=== PATIENT | female | born 1960 | race Caucasian/White ===

== ENCOUNTER → 2017-11-11 10:20 | Outpatient (CLI) | payer OTHER, SELFPAY ==
--- NOTE | 2017-11-11 10:21 | BI_ITS ---
MAMMOGRAPHY - BILATERAL SCREENING REASON FOR EXAM: Female, 57 years old. Routine annual screening examination. PERTINENT HISTORY: Non-contributory. TECHNIQUE: Digital bilateral breast juan (3D mammographic acquisition) in the CC and MLO projections. 2-D mediolateral oblique (MLO) and craniocaudad (CC) views of both breasts were obtained. CAD: Full Field Digital Mammography with Computer Added Detection was performed. COMPARISON: Comparison is made with prior study dated September 25, 2016. FINDINGS: Breast Composition: The breasts are heterogeneously dense, which may obscure small masses. There are no dominant masses or suspicious calcifications. No other significant abnormalities are identified. There has been no significant change since the prior study. BI/SCREENING MAMM (CAD), BILAT IMPRESSION: Stable bilateral screening mammogram. Yearly follow-up mammogram recommended. (A) ASSESSMENT CATEGORY: BIRADS Category 1: Negative. A letter regarding these results will be sent to the patient by the facility within 30 days. Approximately 10% of breast cancers are not detected by mammography. A normal mammogram should not delay biopsy of a clinically suspicious abnormality. [id number] Electronically Signed: Sher Hayes MD at 12:45 EDT Tel [phone], Service support ,
== END ==
PROVIDERS: Family Provider Family Medicine; PCP Family Medicine; Visit Provider Nurse Practitioner Women's Health
DX: Z12.31 Encounter for screening mammogram for malignant neoplasm of breast (principal)
CPT/HCPCS: 77063; 77067

== ENCOUNTER → 2017-11-20 09:23 | Outpatient (CLI) | payer OTHER, SELFPAY ==
--- NOTE | 2017-11-20 09:25 | US_ITS ---
STUDY: ULTRASOUND OF THE PELVIS CLINICAL: Female, 57 years old. Postmenopausal bleeding TECHNIQUE: Transvaginal and transabdominal COMPARISON: None. FINDINGS: Normal uterine size measuring 8.9 x 4.9 x 4.7 cm in maximal craniocaudal dimension. There is a posterior 1.7 cm fibroid. Normal endometrial thickness measuring 3 mm and appears hyperechoic. There are no endometrial masses, and there is no fluid in the endometrial cavity. Nabothian cyst at the uterine cervix. Normal right ovary, measuring 1.6 x 1.6 x 1.0 cm. There are multiple follicles without a dominant cyst. Normal left ovary, measuring 1.9 x 1.1 x 1.7 cm. There are multiple follicles without a dominant cyst. There is no free fluid in the pelvis. US/Transvaginal Non- IMPRESSION: Posterior uterine fibroid. Nabothian cyst. Electronically Signed: Jeremiah Krueger DO at 23:47 EDT Tel [phone], Service support ,
--- NOTE | 2017-11-20 09:25 | US_ITS ---
STUDY: ULTRASOUND OF THE PELVIS CLINICAL: Female, 57 years old. Postmenopausal bleeding TECHNIQUE: Transvaginal and transabdominal COMPARISON: None. FINDINGS: Normal uterine size measuring 8.9 x 4.9 x 4.7 cm in maximal craniocaudal dimension. There is a posterior 1.7 cm fibroid. Normal endometrial thickness measuring 3 mm and appears hyperechoic. There are no endometrial masses, and there is no fluid in the endometrial cavity. Nabothian cyst at the uterine cervix. Normal right ovary, measuring 1.6 x 1.6 x 1.0 cm. There are multiple follicles without a dominant cyst. Normal left ovary, measuring 1.9 x 1.1 x 1.7 cm. There are multiple follicles without a dominant cyst. There is no free fluid in the pelvis. US/Pelvic (Non ) IMPRESSION: Posterior uterine fibroid. Nabothian cyst. Electronically Signed: Jeremiah Krueger DO at 23:47 EDT Tel [phone], Service support ,
== END ==
PROVIDERS: Family Provider Family Medicine; PCP Family Medicine; Referring Provider Nurse Practitioner Women's Health; Visit Provider Nurse Practitioner Women's Health
DX: N95.0 Postmenopausal bleeding (principal)
CPT/HCPCS: 76830; 76856; 93976

== ENCOUNTER 2018-01-16 12:23 | Day surgery (SDC) | payer OTHER, SELFPAY ==
--- NOTE | 2018-01-16 06:05 | HP.PCM_ITS ---
- Problem List (1) Postmenopausal bleeding Status: Acute Comment: d and c hysteroscopy History and Physical Date of Admission: 01/16/18 Visit Reasons: Surgical consult Chief Complaint: surgical consult Property And Equipment Clerk Required: No Is patient in pain?: No Allergies azithromycin Allergy (Mild, Verified 11/20/17 13:51) Other Medications sertraline 50 mg tablet 50 mg PO QDAY #90 tab 07/24/17 [Rx Confirmed 11/20/17] estradiol 0.5 mg tablet 0.5 mg PO DAILY 11/11/17 [History Confirmed 11/11/17] progesterone micronized 100 mg capsule 100 mg PO QAM 11/11/17 [History Confirmed 11/20/17] Is last menstrual period known: No Post menopausal: No Patient : No : No PFSH Medical History Anxiety (Acute) Surgical History H/O: knee surgery (Acute) Status post right foot surgery (Acute) Family History Father Cancer Brain Tumor Social History Smoking Status: Current some day smoker alcohol intake: current details: social substance use type: does not use caffeine: Yes what type of physical activity do you participate in: none, walking seatbelt use: always do you feel safe at home: Yes additional social history: Patient is a Teacher at [employer] Surgical consult: Details: LIOR WASSERMAN is a 57 year old who presents for discussion about d and c. she has hadd irregular postmenopausal bleeding even after a normal biopsy , and she has recently stopped her HRT due to this. she is feeling fine right now and may not go on it again. she has had irregular bleeding nothing heavy, but ultrasound showed possible endometrial abnormality. Pregancy History 3 Elective abortions Hx Para 3 Spontaneous abortions Hx # Term Pregnancies Ectopic pregnancies Hx # Pregnancies Multiple births # of living children Past Pregnancies Del. Date Name GA/Weeks Outcome Route Bth Weight Gen Labor Lgth Anesthesia Del Locatn Provider FOB Unknown Lillian Unknown Mildred Unknown Michael ROS Const Constitutional: Reports system reviewed and no additional complaints, except as docu GI GI: Reports system reviewed and no additional complaints, except as docu Exam Const General: cooperative, healthy appearing, comfortable, no acute distress, well developed Nutritional Appearance: average body habitus Orientation: alert [facility] Head: normal to inspection, normocephalic Ears: hearing grossly normal bilaterally, external ears normal Nose: external nose normal, nares normal Face and sinus: normal facial exam Neck Neck: normal visual inspection, trachea midline, no lymphadenopathy Thyroid: thyroid normal Resp Effort & Inspection: normal respiratory effort Musc Other: gross motor intact no deficits, full bilateral strength Skin General: no rashes or lesions noted Neuro Motor: muscle tone normal throughout Assessment & Plan Problems 1. Postmenopausal bleeding N95.0 d and c hysteroscopy Plan plan d and c hysteroscopy discussed surgical risks including risks of anesthesia, infection, bleeding, injury to bowel, bladder or blood vessels, and patient wishes to proceed with surgery.
[2018-01-16 12:44] VITALS: BP 134/86; PULSE 84; RESP 14; TEMP 36.7; O2SAT 96; BMI 26.2
[2018-01-16 12:53] LABS: Mean Corpuscular Hgb 32.1 pg (27.0-32.0); Mean Corpuscular Volume 91.7 fL (81-99); Mean Platelet Vol. 9.4 fl (6.2-12.0); Platelet Count 197 K/mm3 (150-450); RBC Distribution Width CV 12.3 % (11.6-14.6); RBC Distribution Width SD 40.8 fl (35.1-43.9); Red Blood Count 4.36 M/mm3 (4.2-5.4)
[2018-01-16 12:54] LABS: Scan Indicated on CBC? Y/N NO
--- NOTE | 2018-01-16 14:00 | EMB_PTH ---
PATIENT: LIOR WASSERMAN LOC: [facility] U#:[id number] AGE/SX: 57/F ROOM: RE01/16/[address]: Dr. Yany Kwok MD : 1960 BED: DIS: 01/16/2018 SPEC #: [id number] RECD: 01/16/18 16:06 STATUS: VIVI JONNA #: [id number] NAYA: 01/16/18 14:[address]: Yany Kwok DEPT: SURGICAL PATHOLOGY RECD BY: Rubio Lyons ENTERED: 01/17/18 08:22 SP TYPE: ENDOM BX/C ONIEL DR: Dr. Naif Luna III, MD Tissues: Endometrium, NOS Procedures: Surgery Specimen Level IV HEADER OPERATION: Hysteroscopy, dilation and curettage PRE-OP DIAGNOSIS: Postmenopausal bleeding TISSUE SUBMITTED: Endometrial curettings MICROSCOPIC DIAGNOSIS Endometrial curettings: Proliferative endometrium. Fragments of benign ecto- and endocervical epithelium. SJ:xavi 01/20/18 COMMENT Please make reference to previous specimen ([id number]) endometrial biopsy with diagnosis of proliferative endometrium. MICROSCOPIC DESCRIPTION Slides are reviewed. GROSS DESCRIPTION Received in fixative is one container labeled with the patient's name and designated endometrial curettings. The specimen consists of multiple irregular fragments of brown soft tissue that in aggregate measure 3 x 3 x 0.3 cm. The specimen is totally submitted in one cassette. / RY:xavi 01/17/18 TC:4 CPT: 37444
--- NOTE | 2018-01-16 15:28 | PCM.OPRPT ---
Problem List (1) Postmenopausal bleeding Status: Acute Comment: rajat and mihir hysteroscopy Report of Operation Date of Procedure: 01/16/18 Pre-Operative Diagnosis: pmb Post-Operative Diagnosis: same Surgery/Procedure Performed:: d and c hysteroscopy Description of Surgical Findings:: atrophic lining Type of Anesthesia:: Local MAC Special Medications: none Specimen's removed: emc Drains: none Estimated Blood Loss (mL): minimal Fluids Replaced: crystalloid Description of Procedure: Patient was prepped and draped in a normal sterile fashion under MAC anesthesia. A weighted speculum was placed in the vagina and the anterior lip of the cervix was grasped with a single-tooth tenaculum. A paracervical block was placed with 1% lidocaine. Cervix was progressively dilated to allow passage of a 5 mm hysteroscope. The lining was fully visualized and noted to have an atrophic lining with no significant abnormality. Uterine sounded to 9 cm. Curettage was performed and a very scant amount of tissue was obtained, sent to pathology. All instruments were removed from the vagina and excellent hemostasis was noted. Patient was awoken and taken to recovery in stable condition. Grafts/Implants Used: none - Complications none - Admit VTE Documentation VTE Present on Admission: No
--- NOTE | 2018-01-16 15:31 | DCINST_ITS ---
Discharge Diet: No Restrictions Discharge Activity: Return to Normal Activity, May Shower, May Take a Tub Bath Allergies/Adverse Reactions: Allergies azithromycin Allergy (Mild, Verified 01/13/18 15:23) Other Medications to take at Discharge sertraline 50 mg tablet 50 mg PO QDAY #90 tab 07/24/17 estradiol 0.5 mg tablet 0.5 mg PO DAILY #90 tab 12/12/17 progesterone micronized 100 mg capsule 100 mg PO QAM #90 cap 12/12/17 Primary Care Physician: Naif Luna III, MD [Primary Care Provider] - Test Results: Test results from this visit will be discussed in further detail at your follow- up appointment, if applicable. Please Follow Up With: Yany Kwok MD - [phone]
[2018-01-16 15:35] VITALS: BP 120/82; BP 134/86; PULSE 87; RESP 16; TEMP 36.8; O2SAT 99
[2018-01-16 15:40] VITALS: BP 120/82; BP 134/86; PULSE 87; RESP 16; O2SAT 100
[2018-01-16 15:45] VITALS: BP 125/87; BP 134/86; PULSE 87; RESP 16; O2SAT 99
[2018-01-16 15:50] VITALS: BP 126/87; BP 134/86; PULSE 80; RESP 16; O2SAT 99
[2018-01-16 16:35] VITALS: BP 134/86
== END 2018-01-16 16:53 | disposition home or self-care (01) ==
LOC: SDC 12:24 → AC 12:24
PROVIDERS: Family Provider Family Medicine; PCP Family Medicine; Referring Provider Obstetrics & Gynecology; Visit Provider Obstetrics & Gynecology
PROC: 0UDB8ZZ Extraction of Endometrium, Via Natural or Artificial Opening Endoscopic (ICD-10-PCS; CPT 58558; principal; 2018-01-16 13:50)
DX: N95.0 Postmenopausal bleeding (principal); F41.9 Anxiety disorder, unspecified; Z79.899 Other long term (current) drug therapy; F17.200 Nicotine dependence, unspecified, uncomplicated
CPT/HCPCS: 58558; 85027; 86850; 86900; 88305; J7120; J2405

== ENCOUNTER → 2018-12-08 12:15 | Outpatient (CLI) | payer OTHER, SELFPAY ==
--- NOTE | 2018-12-08 12:17 | BI_ITS ---
MAMMOGRAPHY - BILATERAL SCREENING REASON FOR EXAM: Female, 58 years old. Routine annual screening examination. PERTINENT HISTORY: Non-contributory. TECHNIQUE: Digital bilateral breast geoffrey (3D mammographic acquisition) in the CC and MLO projections. 2-D mediolateral oblique (MLO) and craniocaudad (CC) views of both breasts were obtained. CAD: Full Field Digital Mammography with Computer Added Detection was performed. COMPARISON: Comparison is made with prior study dated November 11, 2017. FINDINGS: Breast Composition: The breasts are heterogeneously dense, which may obscure small masses. There are no dominant masses or suspicious calcifications. No other significant abnormalities are identified. There has been no significant change since the prior study. BI/SCREEN MAMM (CAD) W/GEOFFREY BILAT IMPRESSION: Stable bilateral screening mammogram. Yearly follow-up mammogram recommended. (A) ASSESSMENT CATEGORY: BIRADS Category 1: Negative. A letter regarding these results will be sent to the patient by the facility within 30 days. Approximately 10% of breast cancers are not detected by mammography. A normal mammogram should not delay biopsy of a clinically suspicious abnormality. [id number] Electronically Signed: Sher Hayes, at 14:15 EDT , Service support ,
== END ==
PROVIDERS: Family Provider Family Medicine; PCP Family Medicine; Referring Provider Nurse Practitioner Women's Health; Visit Provider Nurse Practitioner Women's Health
DX: Z12.31 Encounter for screening mammogram for malignant neoplasm of breast (principal)
CPT/HCPCS: 77063; 77067

== ENCOUNTER → 2019-04-24 11:13 | Outpatient (CLI) | payer OTHER, SELFPAY ==
[2018-12-08 13:04] VITALS: BMI 26.2
--- NOTE | 2019-04-24 11:21 | US_ITS ---
STUDY: ULTRASOUND OF THE FEMALE PELVIS - COMPLETE REASON FOR EXAM: Female, 58 years old. PELVIC PRESSURE, URGENCY LMP: Postmenopausal age. TECHNIQUE: Transabdominal TECHNICAL QUALITY: Adequate. COMPARISON: 11/20/2017. FINDINGS: The uterus is anteverted and is in a midline position. The uterus measures 9.6 x 5.8 x 4.2 cm. Normal uterine cervix. The endometrium measures 4.3-5.7 mm in thickness, and is hyperechoic. There is no demonstrated endometrial mass. There is no demonstrated myometrial mass. I.U.D. - The patient does not have an I.U.D. The right ovary is visualized. The right ovary measures 1.7 x 1.6 x 1.6 cm. There is no right ovarian cyst or ovarian mass. There is no visualized right adnexal mass or complex lesion. There is normal arterial and normal venous vascularity. The left ovary is visualized. The left ovary measures 2.3 x 1.9 x 1.4 cm. There is no left ovarian cyst or ovarian mass. There is no visualized left adnexal mass or complex lesion. There is normal arterial and normal venous vascularity. There is no fluid in the cul-de-sac. The volume of the bladder was 506.64 ml. US/Pelvic (Non ) IMPRESSION: Borderline size of the endometrium otherwise endometrium suboptimally seen, recommend follow-up with transvaginal ultrasound for more adequate characterization. Otherwise normal female pelvis ultrasound. Electronically Signed: Barbra Ritchie MD at 2:44 EDT , Service support ,
== END ==
PROVIDERS: PCP Family Medicine; Referring Provider Urology; Visit Provider Urology
DX: R10.2 Pelvic and perineal pain (principal); R39.15 Urgency of urination
CPT/HCPCS: 76856

== ENCOUNTER → 2019-12-10 08:35 | Outpatient (CLI) | payer OTHER, SELFPAY ==
[2018-12-08 13:04] VITALS: BMI 26.2
--- NOTE | 2019-12-10 08:36 | BI_ITS ---
MAMMOGRAPHY - BILATERAL SCREENING REASON FOR EXAM: Female, 59 years old. Routine annual screening examination. PERTINENT HISTORY: Non-contributory. TECHNIQUE: Digital bilateral breast geoffrey (3D mammographic acquisition) in the CC and MLO projections. 2-D mediolateral oblique (MLO) and craniocaudad (CC) views of both breasts were obtained. CAD: Full Field Digital Mammography with Computer Added Detection was performed. COMPARISON: Comparison is made with prior study dated 12/08/2018 and 11/11/2017. FINDINGS: Breast Composition: The breasts are heterogeneously dense, which may obscure small masses. There are no dominant masses or suspicious calcifications. No other significant abnormalities are identified. There has been no significant change since the prior study. BI/SCREEN MAMM (CAD) W/GEOFFREY BILAT IMPRESSION: Stable bilateral screening mammogram. Yearly follow-up mammogram recommended. (A) ASSESSMENT CATEGORY: BIRADS Category 1: Negative. A letter regarding these results will be sent to the patient by the facility within 30 days. Approximately 10% of breast cancers are not detected by mammography. A normal mammogram should not delay biopsy of a clinically suspicious abnormality. [id number] Electronically Signed: Sher Hayes, at 9:36 EDT , Service support ,
== END ==
PROVIDERS: PCP Family Medicine; Referring Provider Nurse Practitioner Women's Health; Visit Provider Nurse Practitioner Women's Health
DX: Z12.31 Encounter for screening mammogram for malignant neoplasm of breast (principal)
CPT/HCPCS: 77063; 77067

== ENCOUNTER → 2020-12-15 12:18 | Outpatient (CLI) | payer OTHER, SELFPAY ==
[2019-12-10 10:23] VITALS: BMI 26.6
--- NOTE | 2020-12-15 12:21 | BI_ITS ---
MAMMOGRAPHY - BILATERAL SCREENING REASON FOR EXAM: Female, 60 years old. Routine annual screening examination. PERTINENT HISTORY: Non-contributory. TECHNIQUE: Digital bilateral breast geoffrey (3D mammographic acquisition) in the CC and MLO projections. 2-D mediolateral oblique (MLO) and craniocaudad (CC) views of both breasts were obtained. CAD: Full Field Digital Mammography with Computer Added Detection was performed. COMPARISON: Comparison is made with prior study 12/10/2019 and 12/08/2018. FINDINGS: Breast Composition: The breasts are heterogeneously dense, which may obscure small masses. There are no dominant masses or suspicious calcifications. No other significant abnormalities are identified. There has been no significant change since the prior study. BI/SCRN MAMM (CAD)W/GEOFFREY BILAT IMPRESSION: Stable bilateral screening mammogram. Yearly follow-up mammogram recommended. (A) ASSESSMENT CATEGORY: BIRADS Category 1: Negative. A letter regarding these results will be sent to the patient by the facility within 30 days. Approximately 10% of breast cancers are not detected by mammography. A normal mammogram should not delay biopsy of a clinically suspicious abnormality. [id number] Electronically Signed: Sher Hayes MD at 13:21 EDT , Service support ,
== END ==
PROVIDERS: PCP Family Medicine; Referring Provider Nurse Practitioner Women's Health; Visit Provider Nurse Practitioner Women's Health
DX: Z12.31 Encounter for screening mammogram for malignant neoplasm of breast (principal)
CPT/HCPCS: 77063; 77067

== ENCOUNTER → 2022-03-08 | Outpatient (CLI) | payer OTHER, SELFPAY ==
--- NOTE | 2022-03-08 14:56 | BI_ITS ---
MAMMOGRAPHY - BILATERAL SCREENING REASON FOR EXAM: Female, 61 years old. Routine annual screening examination. PERTINENT HISTORY: Non-contributory. TECHNIQUE: Digital bilateral breast geoffrey (3D mammographic acquisition) in the CC and MLO projections. 2-D mediolateral oblique (MLO) and craniocaudad (CC) views of both breasts were obtained. CAD: Full Field Digital Mammography with Computer Added Detection was performed. COMPARISON: Comparison is made with prior study dated 12/15/2020 and 12/10/2019. FINDINGS: Breast Composition: The breasts are heterogeneously dense, which may obscure small masses. There are no dominant masses or suspicious calcifications. No other significant abnormalities are identified. There has been no significant change since the prior study. BI/SCRN MAMM (CAD)W/GEOFFREY BILAT IMPRESSION: Stable bilateral screening mammogram. Yearly follow-up mammogram recommended. (A) ASSESSMENT CATEGORY: BIRADS Category 1: Negative. A letter regarding these results will be sent to the patient by the facility within 30 days. Approximately 10% of breast cancers are not detected by mammography. A normal mammogram should not delay biopsy of a clinically suspicious abnormality. [id number] Electronically Signed: Sher Hayes MD at 15:45 EST ,
[2022-03-15 19:41] LABS: HPV APTIMA, High Risk Negative (Negative)
== END | disposition home or self-care (01) ==
PROVIDERS: Visit Provider Nurse Practitioner Women's Health
DX: Z12.31 Encounter for screening mammogram for malignant neoplasm of breast (principal)
CPT/HCPCS: 77063; 77067; 87624; 88175; G0145

== ENCOUNTER → 2022-05-14 | Outpatient (CLI) | payer OTHER, SELFPAY ==
--- NOTE | 2022-05-14 15:25 | NEURO ---
NCS and/or EMG Patient Report Ordering Doctor: Brayden Jenkins DATE OF SERVICE: 05/14/22 Indication: Several months of numbness, tingling, and aching of the left hand (patient is right-handed). Evaluate for entrapment neuropathy. Findings: Nerve conduction studies were performed in the left upper extremity. The left median motor study recording the abductor pollicis brevis showed a normal amplitude, prolonged distal latency and normal conduction velocity. The left ulnar motor study recording the abductor digiti minimi showed a normal amplitude, normal distal latency and normal conduction velocity. No conduction block or focal slowing was present across the elbow. The left median sensory response recording digit two was absent. The left ulnar sensory response recording digit five showed a normal amplitude, latency and conduction velocity. The left radial sensory response recording over the extensor snuff box showed a normal amplitude, latency and conduction velocity. The left median-ulnar lumbrical / interosseous motor latencies showed a prolonged median latency compared to the ulnar. Needle EMG of the left upper extremity was omitted given the confirmatory nature of the nerve conduction studies. Impression: This is an abnormal study. 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 The pathophysiology is predominantly demyelination. These findings are compatible with the clinical diagnosis of carpal tunnel syndrome. Given the relatively fast development of symptoms and the fact that it involves the non-dominant hand, imaging could be considered to evaluate for a structural lesion (e.g., ganglion cyst, accessory muscle, etc.). Saul Dunlap D.O. Multi Select Codes Neurology Neurology Interp Codes: 49417-46 [facility] ([facility]p)
== END | disposition home or self-care (01) ==
LOC: PSN 14:06
PROVIDERS: Visit Provider Family Medicine
DX: R20.0 Anesthesia of skin (principal); R20.2 Paresthesia of skin
CPT/HCPCS: 95910

== ENCOUNTER 2023-01-23 13:43 | Emergency (ER) | payer OTHER, SELFPAY ==
[2023-01-23 13:45] VITALS: BP 149/108; PULSE 80; RESP 16; TEMP 36.6; O2SAT 99; BMI 24.0
--- NOTE | 2023-01-23 14:09 | EX.ED.DYSGE1 ---
HPI History of Present Illness Chief Complaint: Abd Pain Informant: patient Onset/Context/Timing Onset: Yesterday Context: Gradual Onset Timing: Continuous Quality: Aching Location: Lower abdomen Worsened by: Nothing Relieved by: Nothing Narrative Narrative: Patient presents with diarrhea and stool incontinence. Patient states she has been constipated a few days ago. Patient states she has been in to have a bowel movement. Patient states that yesterday she started having some loose stools which progressed to watery diarrhea today. Patient states she has had some fecal incontinence today. Patient went to the [facility] urgent care. Patient was then referred to the emergency department for possible rectal prolapse. Patient admits to some aching pain in her lower abdomen. Patient admits to some pressure in her rectum. Patient denies any melena or hematochezia. Patient denies any fevers or chills. PFSH PFS Medical History (Updated 01/23/23 @ 19:[address] Henrique Ureña DO) Anxiety colon cyst Home Medications sertraline 50 mg tablet 50 mg PO QDAY #90 tabs 03/08/22 [Rx Last Taken Unknown] estradiol 0.5 mg tablet 0.5 mg PO DAILY #90 tabs 04/02/22 [Rx Last Taken Unknown] progesterone micronized 100 mg capsule (Prometrium) 100 mg PO QHS #90 caps 04/02/22 [Rx Last Taken Unknown] Allergy/AdvReac Type Severity Reaction Status Date / Time azithromycin Allergy Intermediate HIVES Verified 01/23/23 13:48 Family History Father Cancer Brain Tumor Surgical History (Updated 01/23/23 @ 14:[address] Henrique Ureña DO) H/O: knee surgery Hx of appendectomy Hx of cholecystectomy spinal tumor removal Status post right foot surgery Social History household members: spouse housing: house Smoking Status: Former smoker alcohol intake: current details: social substance use type: does not use caffeine: Yes what type of physical activity do you participate in: none and walking seatbelt use: always do you feel safe at home: Yes additional social history: Patient is a Teacher at [employer] ED Constitutional Constitutional ED: Denies chills or fever(s) Eyes Eyes: Denies blurry vision or change in vision ENT ENT ED: Denies rhinorrhea or sore throat Cardiovascular Cardiovascular: Denies chest pain or palpitations Respiratory/Chest Respiratory/Chest: Denies cough or dyspnea Gastrointestinal Gastrointestinal: Reports abdominal pain and diarrhea; Denies nausea or vomiting Genitourinary Genitourinary ED: Denies dysuria or hematuria Musculoskeletal Musculoskeletal: Reports back pain and neck pain Integumentary Denies abscess or rash Neurologic Neurologic: Denies headache(s) or weakness Allergic/Immunologic Allergic/Immunologic ED: Denies mouth swelling or urticaria EXAM Physical Exam Const Vital Signs: 01/23/23 13:45 Temperature 97.9 F Temperature Source Temporal Pulse Rate 80 Respiratory Rate 16 Blood Pressure 149/108 H Blood Pressure Mean 121 Pulse Ox 99 Oxygen Delivery Method Room Air Positive well nourished and well developed General Appearance ED: well developed and NAD HEENT Reports moist mucous membranes Neck supple and no JVD Resp normal respiratory effort and clear to auscultation bilaterally Cardio regular rate and regular rhythm GI non-distended GI Narrative: Rectal exam did not feel any rectal prolapse. There were no thrombosed or bleeding hemorrhoids. There are some external hemorrhoids noted. Palpation: soft and tender LLQ and suprapubic; Negative for guarding or rebound tenderness present Extremity normal to inspection Neuro oriented x3, CN's II-XII intact bilaterally and no sensory deficits noted Sensorium / Orientation: alert Motor Exam: strength 5/5 throughout Psych mental status grossly normal MDM MDM MDM Narrative Medical decision making narrative: Differential diagnosis includes diverticulitis, urinary tract infection, colitis, bowel obstruction, perforation, gastroenteritis, ovarian cyst, and abscess. CT scan of the abdomen pelvis will be obtained to assess for diverticulitis, bowel obstruction, perforation, and abscess. CBC will be obtained to assess for leukocytosis and anemia. Basic metabolic profile will be obtained to assess for electrolyte abnormality and renal function. Urinalysis will be obtained to assess for urinary tract infection and hematuria. Lab Data Attestation: I reviewed the patient's lab results. Lab results narrative: CBC was reviewed and was within normal limits. Basic metabolic profile was reviewed and was within normal limits. Urinalysis was reviewed. There is no evidence of urinary tract infection or hematuria. Labs: Laboratory Results - last 24 hr 01/23/23 01/23/23 15:08 16:15 WBC 8.5 RBC 4.82 Hgb 15.3 H Hct 44.9 MCV 93.2 MCH 31.7 MCHC 34.1 RDW Std Deviation 42.8 RDW Coeff of Mary 12.5 Plt Count 223 MPV 9.8 Immature Gran % (Auto) 0.400 Neut % (Auto) 81.3 H Lymph % (Auto) 12.1 L Long % (Auto) 5.9 Eos % (Auto) 0.1 Baso % (Auto) 0.2 Absolute Neuts (auto) 6.9 Absolute Lymphs (auto) 1.03 Nucleated RBC % 0 Sodium 138 Potassium 4.1 Chloride 107 Carbon Dioxide 29.0 Anion Gap 2 L BUN 12 Creatinine 0.72 Estim Creat Clear Calc 70.85 Est GFR (MDRD) Af Amer 106 Est GFR (MDRD) Non-Af 88 BUN/Creatinine Ratio 16.7 Glucose 126 H Calcium 9.4 Urine Color Yellow Urine Clarity Clear Urine pH 6.5 Ur Specific [place] 1.020 Urine Protein 15 H Urine Glucose (UA) Normal Urine Ketones 5 H Urine Occult Blood Negative Urine Nitrite Negative Urine Bilirubin Negative Urine Urobilinogen 1 H Ur Leukocyte Esterase 25 H Urine RBC 0 SEEN Urine WBC 0 SEEN Ur Squamous Epith Cells 0-5 SEEN Urine Bacteria RARE Urine Mucus 0 SEEN Radiography Diagnostic Testing: Clinical Impression(s) from Imaging Studies Abdomen/Pelvis CT 01/23/23 14:44 IMPRESSION: 1. Question rectal impaction. 2. Diverticulosis coli. Electronically Signed: Santo Marquez MD at 16:46 EST Reading Location ID and State: [facility] Tel , Service support , CT scan of the abdomen and pelvis was obtained. There is diverticulosis but no evidence of diverticulitis. There is a questionable rectal impaction. There is no evidence of obstruction or perforation. There is no free air or free fluid. This was interpreted by the radiologist and was also independently reviewed by myself. Treatment and Re-Evaluation :: Patient was advised of her findings. Patient was offered a soapsuds enema. Patient is agreeable with this. Patient had good results with the soapsuds enema. Patient feels better on reevaluation. Patient was instructed to take stool softeners as needed. Patient was instructed to follow-up with her primary care physician in 5 to 7 days. Patient understood and was agreeable with the plan. All questions were answered. Discharge Plan Triage Chief Complaint: Abd Pain ED Provider: Henrique Ureña Dx/Rx/DC Orders Clinical Impression: Fecal impaction in rectum, Constipation Instructions: ED Constipation (Adult), ED Fecal Impaction, Treated Prescriptions: No Action sertraline 50 mg tablet 50 mg PO QDAY Qty: 90 3RF estradiol 0.5 mg tablet 0.5 mg PO DAILY Qty: 90 3RF progesterone micronized [Prometrium] 100 mg capsule 100 mg PO QHS Qty: 90 3RF Primary Care Provider: Brayden Jenkins Referrals: Brayden Jenkins MD [Primary Care Provider] - 5-7 Days Activity Restrictions/Additional Instructions: You may take Colace as needed for a stool softener. You may also use [id number] laxatives as needed. Disposition Disposition: Home, Self Care
--- NOTE | 2023-01-23 14:44 | CT_ITS ---
EXAM: CT ABDOMEN AND PELVIS WITH INTRAVENOUS CONTRAST CLINICAL INDICATION: Abdominal pain TECHNIQUE: Helically acquired images were obtained of the abdomen and pelvis with intravenous contrast. This CT exam was performed using one or more of the following dose reduction techniques: automated exposure control, adjustment of the mA and/or kV according to patient size, and/or use of iterative reconstruction technique. CONTRAST: Oral and amp; IV Gastrografin and amp; 100mL Isovue-300 COMPARISON: No relevant prior studies available. FINDINGS: LOWER THORAX: Normal. Lung bases are clear. No cardiomegaly. No pericardial effusion. ABDOMEN: LIVER: Normal. Homogeneous. No focal mass. GALLBLADDER AND BILE DUCTS: Gallbladder is absent. PANCREAS: Normal. No focal cystic or solid mass. SPLEEN: Normal. Normal size without focal cystic or solid mass. ADRENALS: Normal. No nodules. KIDNEYS AND URETERS: Small renal cysts noted bilaterally. Normal renal size and position. No hydronephrosis. STOMACH AND BOWEL: Fecal distention of the rectum which may represent impaction. Nonspecific fluid distention of the right side of the colon. Diverticulosis of the colon noted without evidence of acute diverticulitis. PELVIS: APPENDIX: No evidence of acute appendicitis. BLADDER: Normal. REPRODUCTIVE: Unremarkable as visualized. No mass. ABDOMEN and PELVIS: INTRAPERITONEAL SPACE: Normal. No ascites or other fluid collection. No free air. BONES/JOINTS: No suspicious lytic or blastic abnormality. SOFT TISSUES: Normal. No discrete abdominal or pelvic wall hernia. VASCULATURE: Normal. Abdominal aorta is non-dilated. LYMPH NODES: Normal. No enlarged lymph nodes. CT/Abdomen/Pelvis WITH Contrast IMPRESSION: 1. Question rectal impaction. 2. Diverticulosis coli. Electronically Signed: Santo Marquez MD at 16:46 EST ,
[2023-01-23 15:22] LABS: Absolute Lymphocyte Count 1.03 X10^3/uL (0.83-4.51); Absolute Neutrophil Count 6.9 X10^3/uL (2.0-7.7); Basophil# 0.02 X10^3/uL; Basophil% 0.2 % (0-1); Eosinophil# 0.01 X10^3/uL; Eosinophils% 0.1 % (0-5); Hematocrit 44.9 % (37-47); Hemoglobin 15.3 g/dL (12.0-15.0); Lymphocyte # 1.03 X10^3/ul (0.83-4.51); Lymphocyte % 12.1 % (19-41); Mean Corp Hgb Conc 34.1 g/dL (32-36); Mean Corpuscular Hgb 31.7 pg (27.0-32.0); Mean Corpuscular Volume 93.2 fL (81-99); Mean Platelet Vol. 9.8 fl (6.2-12.0); Monocyte% 5.9 % (0-10); NRBC Flagged by Analyzer 0 % (0-5); Neutrophil # 6.93 X10^3/uL (2.7-7.7); Neutrophil % 81.3 % (47-70); Platelet Count 223 K/mm3 (150-450); RBC Distribution Width CV 12.5 % (11.6-14.6); RBC Distribution Width SD 42.8 fl (35.1-43.9); Red Blood Count 4.82 M/mm3 (4.2-5.4); White Blood Count 8.5 K/mm3 (4.4-11.0)
[2023-01-23 15:33] LABS: Anion Gap 2 (5-15); BUN 12 mg/dL (7-18); BUN/Creat Ratio 16.7 RATIO (10-20); Calcium,Total 9.4 mg/dL (8.5-10.1); Chloride 107 mmol/L (98-107); Creatinine, Serum 0.72 mg/dL (0.55-1.02); EST Glomerular Filtration Rate 88 mL/min (>60); Est Glom Filt Rate - Afr Amer 106 mL/min (>60); Estimated Creatinine Clearance 70.85 ml/min; Glucose 126 mg/dL (74-106); Potassium 4.1 mmol/L (3.5-5.1); Sodium Level 138 mmol/L (136-145)
[2023-01-23 16:27] LABS: Mucous, Urine 0 SEEN /hpf (<or=2+); Red Blood Cells-Urine 0 SEEN /hpf (0-5); White Blood Cells 0 SEEN /hpf (0-5)
[2023-01-23 16:28] LABS: Color, Urine Yellow (Yellow); Glucose, Dipstick Normal (Normal); Ketone-Dipstick 5 mg/dl (Negative); Leukocyte Esterase-Dipstick 25 /ul (Negative); Nitrite-Dipstick Negative (Negative); Occult Blood-Urine Negative /ul (Negative); Protein-Dipstick 15 mg/dl (Negative); Urine Bilirubin Dipstick Negative (Negative); Urine Clarity Clear (Clear); Urine Urobilinogen 1 mg/dl (Normal); Urine pH 6.5 (5.0 - 8.0)
[2023-01-23 16:57] LABS: Bacteria RARE /hpf (None Seen); Squamous Epithelial Cells - UA 0-5 SEEN /hpf (5-10)
[2023-01-23 19:33] VITALS: RESP 12
== END 2023-01-23 19:47 | disposition home or self-care (01) ==
PROVIDERS: Emergency Provider Emergency Medicine; PCP Family Medicine; Visit Provider Emergency Medicine
DX: K56.41 Fecal impaction (principal); Z87.891 Personal history of nicotine dependence; F41.9 Anxiety disorder, unspecified; Z79.899 Other long term (current) drug therapy; Z90.49 Acquired absence of other specified parts of digestive tract
CPT/HCPCS: 74177; 80048; 81001; 85025; 99285; Q9967; A4216

== ENCOUNTER → 2023-04-15 | Outpatient (CLI) | payer OTHER, SELFPAY ==
--- NOTE | 2023-04-15 12:31 | BI_ITS ---
MAMMOGRAPHY - BILATERAL SCREENING 3-D TOMOSYNTHESIS REASON FOR EXAM: Female, 62 years old. SCREENING PERTINENT HISTORY: No significant family history. TECHNIQUE: 2-D mammograms and 3-D Tomosynthesis of the breast (s) were performed. CAD was performed. COMPARISON: 03/08/2022 FINDINGS: The breast composition is composed of scattered fibroglandular density. Scattered benign calcifications are seen. No dense spiculated masses or suspicious microcalcifications are identified. No architectural distortion is identified. There is no skin thickening or retraction. There has been no significant change since the prior study. BI/SCRN MAMM (CAD)W/GEOFFREY BILAT IMPRESSION: No mammographic signs of malignancy. Routine yearly mammograms recommended. ASSESSMENT CATEGORY: BIRADS Category 1: Negative. A letter regarding these results will be sent to the patient by the facility within 30 days. FOLLOW UP RECOMMENDATION: Yearly follow up mammogram recommended. (A) Approximately 10% of breast cancers are not detected by mammography. A normal mammogram should not delay biopsy of a clinically suspicious abnormality. Electronically Signed: Joshua Arguelles MD at 16:04 EST ,
== END | disposition home or self-care (01) ==
LOC: OPBI 12:31
PROVIDERS: PCP Family Medicine; Referring Provider Nurse Practitioner Women's Health; Visit Provider Nurse Practitioner Women's Health
DX: Z12.31 Encounter for screening mammogram for malignant neoplasm of breast (principal)
CPT/HCPCS: 77063; 77067

== ENCOUNTER → 2024-05-05 | Outpatient (CLI) | payer OTHER, SELFPAY ==
--- NOTE | 2024-05-05 08:45 | BI_ITS ---
EXAM: PROCEDURE: MA Mammogram Digital Screen CLINICAL HISTORY: Screening COMPARISON: Mammogram studies dated 04/15/2023 and 03/08/2022 TECHNIQUE: A bilateral screening mammogram was obtained with MLO and CC views of both breasts with digital breast tomosynthesis. BREAST CANCER RISK ASSESSMENT: Does not appear to have been calculated. FINDINGS: No suspicious masses, suspicious calcifications or other suspicious mammogram findings are seen in either breast. There are stable partially obscured isodense masses in the superior outer aspect of each breast measuring less than 3 mm in size. Stable nodular masslike densities are seen in both breasts. CONCLUSION: Right Breast: BI-RADS category 2, benign findings Left Breast: BI-RADS category 2, benign findings Breast Composition: There are scattered areas of fibroglandular density. Recommendation: Annual screening mammography Thank you for referring your patient to the [facility], if you have any questions, please call us at the performing site listed at the top of the report. [facility] , [facility] , [facility] and [facility] [facility] . Reading Location: [id number]
== END | disposition home or self-care (01) ==
LOC: OPBI 08:44
PROVIDERS: PCP Family Medicine; Referring Provider Nurse Practitioner Women's Health; Visit Provider Nurse Practitioner Women's Health
DX: Z12.31 Encounter for screening mammogram for malignant neoplasm of breast (principal)
CPT/HCPCS: 77063; 77067